=== PATIENT | male | born 1985 | race Caucasian/White ===

== ENCOUNTER 2018-01-17 03:01 | Emergency (ER) | payer OTHER ==
[~2018-01-17] VITALS: Ht 172.7 cm; Wt 105.2 kg
[2018-01-17 03:13] VITALS: BP 145/89
[2018-01-17] MEDS ORDERED: ACULAR5 ML OPH (03:47)
[2018-01-17] MEDS ORDERED: TOBREX5 ML OPH (03:47)
--- NOTE | 2018-01-17 03:48 | ED EYE COMPLAINT ---
History of Present Illness General Chief Complaint: Eye Problems Stated Complaint: "I WAS JUST AT WORK AND BOTTLE BROKE IN MY EYE" Source: patient, old records Exam Limitations: no limitations Vital Signs & Intake/Output Vital Signs & Intake/Output Vital Signs Date Time Temp Pulse Resp B/P B/P Pulse O2 O2 Flow FiO2 Mean Ox Delivery Rate 01/174 98 Room Air 01/17 313 98.9 105 18 145/89 96 Room Air Allergies Coded Allergies: No Known Allergies (01/17/18) Triage Note: PT FROM HOME C/O GLASS IN RIGHT EYE SINCE . PT STATES HE WAS AT WORK FOR A [employer] AND A BOTTLE SMASHED AND GOT IN RT EYE. PT WASHED EYE OUT, GOT A PIECE OF GLASS OUT. VSS. NO DISTRES NOTED. PT STATES BLURRY VISION IN RT EYE. PT DENIES FREIRE. Triage Nurses Notes Reviewed? yes Onset: Just prior to arrival Duration: minute(s):, constant, continues in ED Timing: recent history Injury Environment: work Severity: moderate No Modifying Factors: none Right Eye Associated Symptoms: foreign body sensation, blurred vision HPI: Prior to admission while at work a bottle broke overhead and a piece of glass went into his right eye. He irrigated the piece of glass out. Complains of blurred vision foreign body sensation. He denies other injury fever chills nausea vomiting diarrhea abdominal pain chest pain shortness breath headache dysuria rash bleeding. Past History Travel History Traveled to [place] past 21 day No Medical History Any Pertinent Medical History? none Surgical History Surgical History: non-contributory Psychosocial History What is your primary language Surinamese Tobacco Use: Quit >30 days ago Family History Hx Contributory? No Review of Systems Review of Systems Constitutional: Reports: no symptoms. Eyes: Reports: see HPI, blurred vision, foreign body sensation. Ear: Reports: no symptoms. Nose: Reports: no symptoms. Mouth: Reports: no symptoms. Throat: Reports: no symptoms. Respiratory: Reports: no symptoms. Cardiovascular: Reports: no symptoms. GI: Reports: no symptoms. Genitourinary: Reports: no symptoms. Musculoskeletal: Reports: no symptoms. Skin: Reports: no symptoms. Neurological/Psychological: Reports: no symptoms. Hematologic/Endocrine: Reports: no symptoms. Immunologic/Allergic: Reports: no symptoms. All Other Systems: Reviewed and Negative Physical Exam General Appearance: well developed/nourished, mild distress General Inspection: normal inspection Eyelid: normal inspection Conjunctiva/Sclera: normal inspection Cornea: normal inspection EOM: intact Pupil: normal accommodation, normal pupil, PERRL Anterior Chamber: normal inspection General Inspection: normal inspection Eyelid: normal inspection, everted for exam Conjunctiva/Sclera: normal inspection Cornea: examined w/fluorescein, abrasion, fluorescein dye uptake EOM: intact Pupil: normal accommodation, normal pupil, PERRL Anterior Chamber: normal inspection Eye Right 1) abrasion, dye uptake Physical Exam Head: atraumatic, normal appearance Ears: Bilateral: canal normal, Tympanic normal. 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 Skin: intact, normal color, warm/dry Progress Differential Diagnosis: corneal abrasion, corneal foreign body, globe rupture Plan of Care: Current Medications Sig/Neha Start time Last Medication Dose Stop Time Status Admin Atropine Sulfate 2 GTT ONCE ONE 01/17 345 UNVr (ATROPINE) 01/17 346 Tetracaine 0.5 ML ONCE ONE 01/17 034 UNVr (Pontocaine 0.5% 1ML 01/17 346 Dropperette 1 Ml) Departure Departure Time of Disposition: 345 Disposition: HOME OR SELF CARE Condition: Stable Clinical Impression Primary Impression: Corneal abrasion, right Referrals: Odell MONTALVO,Terell Ji Follow up with your eye doctor or Dr. Bain. Additional Instructions: Tetracaine 1-2 drops every 6 hours as needed for pain Departure Forms: Customer Survey General Discharge Information RELEASE- WORK Prescriptions: Current Visit Scripts Ketorolac Tromethamine (Acular) 1 GTT OPH 4 TIMES/DAY #5 ML Tobramycin (Tobrex) 2 GTT OPH 4 TIMES/DAY #5 ML
== END 2018-01-17 04:00 ==
LOC: ERH 03:01
DX: S05.01XA Injury of conjunctiva and corneal abrasion without foreign body, right eye, initial encounter (principal); X58.XXXA Exposure to other specified factors, initial encounter; Y92.9 Unspecified place or not applicable